=== PATIENT | male | born 1955 | race Caucasian/White ===

== ENCOUNTER 2021-02-24 21:04 | Inpatient (IN) | payer MEDICARE, BC ==
[~2021-02-24] VITALS: Ht 172.7 cm; Wt 61.2 kg
--- NOTE | 2021-02-24 22:31 | NUR ---
COVID SWAB COLLECTED AND SENT TO LAB
[2021-02-24 22:48] LABS: BASOPHILS % (AUTO) 0.6 % (0.0-2.0); EOSINOPHILS % (AUTO) 1.1 % (0.0-6.0); HEMATOCRIT 39 % (39-51); HEMOGLOBIN 13.6 g/dL (13.5-17.5); LYMPHOCYTES # (AUTO) 2.3 K/uL (0.8-4.8); LYMPHOCYTES % (AUTO) 31.5 % (20.0-44.0); MEAN CORPUSCULAR HGB CONC 35 g/dl (31.0-36.0); MEAN CORPUSCULAR VOLUME 89 fL (80-96); MONOCYTES # (AUTO) 0.6 K/uL (0.1-1.30); MONOCYTES % (AUTO) 8.6 % (2.0-12.0); NEUTROPHILS # (AUTO) 4.2 K/uL (1.8-8.9); NEUTROPHILS % (AUTO) 58.2 % (43.0-81.0); PLATELET COUNT (AUTO) 295 K/uL (150-450); RED BLOOD CELL COUNT(AUTO) 4.43 MIL/uL (4.5-6.0); WHITE BLOOD COUNT (AUTO) 7.3 K/uL (4.3-11.0)
--- NOTE | 2021-02-24 23:01 | NUR ---
EVELYN FROM SNF TO ER BED 14. AAOX3. NOT IN RSP DISTRESS. BROUGHT IN FOR MEDICAL CLEARANCE FOR [facility] ADMISSION, PT IS ON HOLD FOR DTS. MD WAS AT THE BEDSIDE FOR EVAL. ORDERS RECEIVED, NOTED AND CARRIED OUT
--- NOTE | 2021-02-25 02:17 | NUR ---
REPORT GIVEN TO YOLANDA ATWOOD FOR [facility]
[2021-02-25 02:22] LABS: BILIRUBIN,URINE NEGATIVE (NEGATIVE); COLOR,URINE YELLOW (YELLOW); LEUKOCYTE ESTERASE ,URINE NEGATIVE (NEGATIVE); NITRITE, URINE NEGATIVE (NEGATIVE); PROTEIN,URINE NEGATIVE (NEGATIVE); UGLUCOSE NEGATIVE (NEGATIVE); UROBILINOGEN,URINE 0.2 EU/dL (0.2)
[2021-02-25 05:19] LABS: ALKALINE PHOSPHATASE 102 U/L (46-116); ASPARTATE AMINOTRANSFERASE 18 U/L (15-37); BILIRUBIN,TOTAL 0.3 mg/dL (0.2-1.0); CARBON DIOXIDE 25 mmol/L (21-32); CHLORIDE 102 mmol/L (98-107); POTASSIUM 3.9 mmol/L (3.5-5.1); SODIUM SERUM 138 mmol/L (136-145); TOTAL PROTEIN, SERUM 6.8 g/dL (6.4-8.2)
[2021-02-25 05:32] LABS: ALANINE AMINOTRANSFERASE 39 U/L (12-78); ALBUMIN 3.7 g/dL (3.4-5.0); BILIRUBIN,DIRECT 0.1 mg/dL (0.0-0.2); CALCIUM, SERUM 8.7 mg/dL (8.5-10.1); CREATININE 1.1 mg/dL (0.6-1.3); GLUCOSE 104 mg/dL (74-106); UREA NITROGEN, BLOOD 21 mg/dL (7-18)
[2021-02-25 05:45] LABS: ACETAMINOPHEN 0 ug/ml (10-30)
--- NOTE | 2021-02-25 05:48 | NUR ---
PENDING TRANSFER TO UNIT/[facility], AWATING LAB RESULTS, LABS SENT OUT.
[2021-02-25 05:52] LABS: ALCOHOL, BLOOD < 3 mg/dL (0-0)
--- NOTE | 2021-02-25 06:12 | NUR ---
TRANSFERRED TO [facility] IN STABLE CONDITION
--- NOTE | 2021-02-25 06:20 | NUR ---
RN NOTE RECEIVED PATIENT NEW ADMIT FROM ER TO ROOM 211-[address] GHOSH.
[2021-02-25] MEDS ORDERED: ACETAMINOPHEN 325 MG TABLET PO PRN (06:30)
[2021-02-25] MEDS ORDERED: MAGNESIUM HYDROXIDE 30 ML UDC PO PRN (06:30)
[2021-02-25] MEDS ORDERED: MAG HYDROX/AL HYDROX/SIMETH 30 ML UDC PO PRN (06:30)
[2021-02-25] MEDS ORDERED: TEMAZEPAM 7.5 MG CAPSULE PO PRN (06:30)
[2021-02-25] MEDS ORDERED: LORAZEPAM 0.5 MG TABLET PO PRN (06:30)
[2021-02-25] MEDS ORDERED: BLOOD SUGAR DIAGNOSTIC 1 EACH STRIP IN ONE (06:30)
[2021-02-25 06:40] VITALS: BP 104/55
--- NOTE | 2021-02-25 06:50 | NUR ---
RN NOTE PATIENT'S SISTER RAMEZ PINA WAS CALLED VIA PHONE BY CHARGE NURSE AND INFORMED RAMEZ ABOUT PATIENT'S ADMISSION AT [facility].
--- NOTE | 2021-02-25 07:15 | NUR ---
RN NOTE DR. GHOSH NOTIFIED ABOUT PATIENT'S ADMISSION AT [facility] UNDER DR. GHOSH'S CARE.
[2021-02-25 07:16] VITALS: BP 105/51
--- NOTE | 2021-02-25 07:34 | NUR ---
RN NOTE PATIENT DENIED TAKING ANY MEDICATIONS AT HOME FOR MED RECONCILIATION. PER PATIENT," I DON'T TAKE ANY MEDICATIONS AT HOME." AND PATIENT REFUSED TO PROVIDE ANY MEDICATION HISTORY.
[2021-02-25 08:00] VITALS: BP 104/55
--- NOTE | 2021-02-25 11:28 | NUR ---
JAQUELIN Initial Discharge Plan: Patient currently lives at [address] [place] [address]; ([phone]). Patient reports that he lives with a friend. Patient would want to go back home upon dc. JAQUELIN will work with the family, pt, and MD for appropriate discharge.
--- NOTE | 2021-02-25 11:42 | NUR ---
Treatment Plan: Pt refused to sign treatment plan and was suspicious of this staff.
--- NOTE | 2021-02-25 13:14 | NUR ---
JAQUELNI Family Contact: SW spoke with patient's sister Zeenat ([phone], ) to gather collateral and to discuss treatment plan. Sister Zeenat stated that pt's mental status has been declining and that months ago he invited a homeless female to live with him. Sister reported that family has an ip attorney and stated APS is also involved in pt's case. Zeenat stated that she does not want pt to return back home and is open to options such as nursing facility and if this option is not available Zeenat expressed that brother Tami will take pt to his place until his house situation is solved. 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 Zeenat expressed that she is currently living in the [facility] and has been trying to help pt.
[2021-02-25] MEDS: risperiDONE-M 0.5 MG TAB.RAPDIS PO SCH ×2 (13:32→17:17)
[2021-02-25 16:00] VITALS: BP 111/56
--- NOTE | 2021-02-25 16:06 | NUR ---
JAQUELIN Family Contact: JAQUELIN spoke with patient's sister Zeenat ([phone]) who stated she is the DPOA but is unable to send the documents at this time. Zeenat requested for this SW to see if she can be the DPOA for pt's finances and to notarize it. JAQUELIN stated pt would have to be agreeable with this.
--- NOTE | 2021-02-25 16:07 | NUR ---
SW Note: SW discussed pt's living situation and how he has a homeless female living at his house. He is aware of this situation. SW expressed that sister Zeenat wants to help pt to become DPOA of finances to evict the homeless person out of his house. Pt stated "I do not want to talk about this" and stated he will refuse to sign any documents.
--- NOTE | 2021-02-25 16:08 | NUR ---
JAQUELIN Family Contact: JAQUELIN spoke with patient's sister Zeenat ([phone]) and stated pt is refusing to sign any documents that has to do with finances and becoming DPOA for finances. Zeenat was understanding, she stated that she is only trying to help her brother and the situation.
[2021-02-25 19:59] VITALS: BP 101/58
[2021-02-25 20:00] VITALS: BP 101/58
--- NOTE | 2021-02-26 06:12 | NUR ---
RN NOTE PATIENT REFUSED AM LABS AT THIS TIME AND PATIENT ASKED THE EDUCATIONAL PARAPROFESSIONAL TO COME BACK LATER.
[2021-02-26 08:00] VITALS: BP 104/59
[2021-02-26] MEDS: risperiDONE-M 0.5 MG TAB.RAPDIS PO SCH ×3 (08:13→16:26)
--- NOTE | 2021-02-26 11:36 | NUR ---
Individual Therapy: SW attempted to meet with patient to conduct therapy. Pt stated "I do not want to talk now". SW unable to conduct therapy at this time.
--- NOTE | 2021-02-26 12:59 | NUR ---
DPOA DOCUMENT: Patient's sister Zeenat ([phone]) sent DPOA documents and SW placed in chart.
[2021-02-26] MEDS ORDERED: risperiDONE-M 0.5 MG TAB.RAPDIS PO PRN (13:00)
[2021-02-26] MEDS: GABAPENTIN 100 MG CAPSULE PO SCH ×2 (13:04→16:26)
--- NOTE | 2021-02-26 13:20 | NUR ---
APS: APS filed through [facility] (Intake ID [id number]) due to pt verbalizing that he has a stranger living in the house and is taking advantage.
[2021-02-26 16:00] VITALS: BP 105/63
[2021-02-26 20:00] VITALS: BP 103/60
[2021-02-27 08:00] VITALS: BP 128/70
[2021-02-27] MEDS: GABAPENTIN 100 MG CAPSULE PO SCH ×3 (08:14→16:17)
[2021-02-27] MEDS: risperiDONE-M 0.5 MG TAB.RAPDIS PO SCH ×3 (08:14→21:14)
[2021-02-27 16:00] VITALS: BP 105/66
--- NOTE | 2021-02-27 19:30 | NUR ---
[facility] RN NOTE, RECEIVED PATIENT AWAKE AND IN BED, NO S/S OR COMPLAINTS OF PAIN AT THIS TIME. PATIENT IS DISPLAYING NO S/S OF APPARENT DISTRESS AT THIS TIME. PATIENT BREATHING IS UNLABORED WITH EQUAL RISE AND FALL OF THE CHEST. PATIENT IS ALERT AND ORIENTED X 3 ON ROOM AIR WITH A SPO2 99%. PATIENT IS COMPLIANT WITH MEDICATIONS, ANXIOUS, POLITE, ISOLATIVE, AND COOPERATIVE. PATIENT DENIES SUICIDAL AND HOMICIDAL IDEATIONS AT THIS TIME. PATIENT ASSISTED WITH TURNING AND REPOSITIONING Q2HR AND PRN FOR COMFORT AND CIRCULATION. PATIENT HAS NO NEEDS AT THIS TIME. PATIENT EDUCATED ON THE USE OF THE CALL SPANN. PATIENT BED SIDE RAILS UP X 2 FOR SAFETY. PATIENT BED IS LOCKED, LOW, WITH BED ALARM ON. WILL CONTINUE TO MONITOR THIS PATIENT Q15 MINUTES WITH THE HELP OF STAFF TO MAINTAIN SAFETY.
[2021-02-27 20:00] VITALS: BP 119/73
[2021-02-28 08:00] VITALS: BP 116/63
[2021-02-28] MEDS: risperiDONE-M 0.5 MG TAB.RAPDIS PO SCH ×3 (08:13→21:12)
[2021-02-28] MEDS: GABAPENTIN 100 MG CAPSULE PO SCH ×3 (08:13→16:12)
[2021-02-28 16:00] VITALS: BP 118/78
[2021-02-28 20:00] VITALS: BP 135/75
[2021-03-01 08:00] VITALS: BP 130/60
[2021-03-01] MEDS: risperiDONE-M 0.5 MG TAB.RAPDIS PO SCH ×3 (08:00→21:30)
[2021-03-01] MEDS: GABAPENTIN 100 MG CAPSULE PO SCH ×3 (09:05→17:27)
[2021-03-01 13:00] VITALS: BP 96/68
[2021-03-01 19:55] VITALS: BP 101/52
--- NOTE | 2021-03-01 20:00 | NUR ---
[facility]-RN NOTES: PATIENT REFUSED WEEKLY SKIN ASSESSMENT.
[2021-03-02 08:00] VITALS: BP 100/59
[2021-03-02] MEDS: risperiDONE-M 0.5 MG TAB.RAPDIS PO SCH ×4 (08:11→21:03)
[2021-03-02] MEDS: GABAPENTIN 100 MG CAPSULE PO SCH ×3 (08:12→17:44)
[2021-03-02 16:00] VITALS: BP 111/64
--- NOTE | 2021-03-02 19:53 | NUR ---
RN NOTES: ANXIETY PATIENT IS ANXIOUS ,RESTLESS,PARANOID, AND AGITATED. PRN ATIVAN 0.5 MG PO GIVEN. WILL CONTINUE TO MONITOR FOR PATIENT'S SAFETY.
[2021-03-02 20:00] VITALS: BP 115/72
[2021-03-02] MEDS: GABAPENTIN 300 MG CAPSULE PO SCH (21:49)
[2021-03-03 08:00] VITALS: BP 125/74
[2021-03-03] MEDS: risperiDONE-M 0.5 MG TAB.RAPDIS PO SCH ×3 (09:42→17:38)
[2021-03-03] MEDS: GABAPENTIN 100 MG CAPSULE PO SCH ×3 (09:43→17:38)
--- NOTE | 2021-03-03 11:06 | NUR ---
JAQUELIN SNF Referral: JAQUELIN sent clinicals to Nadja from [facility] ([phone]) for placement option.
[2021-03-03 16:00] VITALS: BP 118/66
[2021-03-03] MEDS ORDERED: risperiDONE 1 MG TABLET PO SCH (21:00)
[2021-03-03 21:04] VITALS: BP 118/82
[2021-03-03] MEDS: GABAPENTIN 300 MG CAPSULE PO SCH (21:53)
[2021-03-04 08:00] VITALS: BP 102/57
[2021-03-04] MEDS: GABAPENTIN 100 MG CAPSULE PO SCH ×3 (08:12→16:42)
[2021-03-04] MEDS: risperiDONE-M 0.5 MG TAB.RAPDIS PO SCH ×3 (08:13→16:42)
[2021-03-04] MEDS: BENZTROPINE MESYLATE (1 MG) 1 MG TABLET PO SCH ×3 (12:09→22:06)
--- NOTE | 2021-03-04 14:57 | NUR ---
Writ: SW and pt were present contacting the public area attendant office and spoke with [employer] attorney lawyer ([phone]). Pt stated that he wanted to withdraw from his writ.
--- NOTE | 2021-03-04 15:12 | NUR ---
RN-CO: SW,Charge nurse and pt were present contacting the public transit specialist office and spoke with [employer] claim attorney ([phone]). Pt stated that he wanted to withdraw from his writ. Dr Stallworth made aware.
[2021-03-04 16:00] VITALS: BP 135/67
[2021-03-04 20:00] VITALS: BP 112/68
[2021-03-04] MEDS: risperiDONE 1 MG TABLET PO SCH (21:09)
[2021-03-04] MEDS: GABAPENTIN 300 MG CAPSULE PO SCH (22:06)
[2021-03-05 08:00] VITALS: BP 100/59
[2021-03-05] MEDS: risperiDONE-M 0.5 MG TAB.RAPDIS PO SCH ×3 (08:03→17:21)
[2021-03-05] MEDS: BENZTROPINE MESYLATE (1 MG) 1 MG TABLET PO SCH ×4 (08:04→21:35)
[2021-03-05] MEDS: GABAPENTIN 100 MG CAPSULE PO SCH ×3 (08:04→17:21)
--- NOTE | 2021-03-05 09:07 | NUR ---
JAQUELIN SNF Contact: JAQUELIN received a call from Nadja from [facility] ([phone]) who stated they cannot accept pt due to not having skill need.
--- NOTE | 2021-03-05 09:07 | NUR ---
JAQUELIN SNF Referral: JAQUELIN sent clinicals to joceline [facility] ([phone]) for placement option. JAQUELIN sent H & P, progress notes, and medication list.
[2021-03-05 16:00] VITALS: BP 112/54
[2021-03-05 20:00] VITALS: BP 107/62
[2021-03-05] MEDS: risperiDONE 1 MG TABLET PO SCH (21:35)
[2021-03-05] MEDS: GABAPENTIN 300 MG CAPSULE PO SCH (21:35)
[2021-03-06 08:00] VITALS: BP 109/66
[2021-03-06] MEDS: risperiDONE-M 0.5 MG TAB.RAPDIS PO SCH ×3 (08:04→16:39)
[2021-03-06] MEDS: GABAPENTIN 100 MG CAPSULE PO SCH ×3 (08:04→16:39)
[2021-03-06] MEDS: BENZTROPINE MESYLATE (1 MG) 1 MG TABLET PO SCH ×4 (08:04→21:46)
--- NOTE | 2021-03-06 11:00 | NUR ---
JAQUELIN SNF Referral: JAQUELIN sent clinicals to Ciara car from [facility] ([phone]) for placement. JAQUELIN faxed H & P, progress notes, and medication list.
--- NOTE | 2021-03-06 11:46 | NUR ---
SW SNF Contact: JAQUELIN spoke with accounts executive Suzette ([phone]) who stated pt is accepted at [facility].
--- NOTE | 2021-03-06 13:53 | NUR ---
JAQUELIN Family Contact: SW contacted patient's sister Zeenat STEVENSON ([phone]) and indicated that pt is accepted at [facility] and she was agreeable with this.
[2021-03-06 16:00] VITALS: BP 106/59
--- NOTE | 2021-03-06 19:29 | NUR ---
[facility] RN NOTE, RECEIVED PATIENT AWAKE AND IN BED, NO S/S OR COMPLAINTS OF PAIN AT THIS TIME. PATIENT IS DISPLAYING NO S/S OF APPARENT DISTRESS AT THIS TIME. PATIENT BREATHING IS UNLABORED WITH EQUAL RISE AND FALL OF THE CHEST. PATIENT IS ALERT AND ORIENTED X 3 ON ROOM AIR WITH A SPO2 99%. PATIENT IS COMPLIANT WITH MEDICATIONS, ANXIOUS, EASILY IRRITABLE, ISOLATIVE, AND COOPERATIVE. PATIENT DENIES SUICIDAL AND HOMICIDAL IDEATIONS AT THIS TIME. PATIENT ASSISTED WITH TURNING AND REPOSITIONING Q2HR AND PRN FOR COMFORT AND CIRCULATION. PATIENT HAS NO NEEDS AT THIS TIME. PATIENT EDUCATED ON THE USE OF THE CALL SPANN. PATIENT BED SIDE RAILS UP X 2 FOR SAFETY. PATIENT BED IS LOCKED, LOW, WITH BED ALARM ON. WILL CONTINUE TO MONITOR THIS PATIENT Q15 MINUTES WITH THE HELP OF STAFF TO MAINTAIN SAFETY.
[2021-03-06 20:28] VITALS: BP 113/60
[2021-03-06] MEDS: GABAPENTIN 300 MG CAPSULE PO SCH (21:46)
[2021-03-06] MEDS: risperiDONE 1 MG TABLET PO SCH (21:46)
[2021-03-07 08:00] VITALS: BP 102/51
[2021-03-07] MEDS: risperiDONE-M 0.5 MG TAB.RAPDIS PO SCH ×3 (08:06→16:04)
[2021-03-07] MEDS: GABAPENTIN 100 MG CAPSULE PO SCH ×3 (08:06→16:05)
[2021-03-07] MEDS: BENZTROPINE MESYLATE (1 MG) 1 MG TABLET PO SCH ×4 (08:07→21:20)
[2021-03-07 16:00] VITALS: BP 144/84
[2021-03-07 20:13] VITALS: BP 125/73
[2021-03-07] MEDS: GABAPENTIN 300 MG CAPSULE PO SCH (21:20)
[2021-03-07] MEDS: risperiDONE 1 MG TABLET PO SCH (21:20)
[2021-03-08 08:00] VITALS: BP 100/59
[2021-03-08] MEDS: risperiDONE-M 0.5 MG TAB.RAPDIS PO SCH ×3 (08:46→16:38)
[2021-03-08] MEDS: GABAPENTIN 100 MG CAPSULE PO SCH ×3 (08:46→16:38)
[2021-03-08] MEDS: BENZTROPINE MESYLATE (1 MG) 1 MG TABLET PO SCH ×4 (08:46→21:39)
[2021-03-08 16:00] VITALS: BP 125/73
[2021-03-08 20:00] VITALS: BP 105/61
[2021-03-08] MEDS: risperiDONE 1 MG TABLET PO SCH (21:35)
[2021-03-08] MEDS: GABAPENTIN 300 MG CAPSULE PO SCH (21:39)
[2021-03-09 08:00] VITALS: BP 102/59
[2021-03-09] MEDS: GABAPENTIN 100 MG CAPSULE PO SCH ×3 (08:18→17:37)
[2021-03-09] MEDS: risperiDONE-M 0.5 MG TAB.RAPDIS PO SCH ×3 (08:18→17:37)
[2021-03-09] MEDS: BENZTROPINE MESYLATE (1 MG) 1 MG TABLET PO SCH ×4 (08:21→21:36)
[2021-03-09 16:00] VITALS: BP 139/79
[2021-03-09 20:22] VITALS: BP 114/63
[2021-03-09] MEDS: risperiDONE 1 MG TABLET PO SCH (20:39)
[2021-03-09] MEDS: GABAPENTIN 300 MG CAPSULE PO SCH (21:36)
[2021-03-10] MEDS: risperiDONE-M 0.5 MG TAB.RAPDIS PO SCH ×2 (08:00→13:00)
--- NOTE | 2021-03-10 08:06 | NUR ---
SW Discharge Note: Patient will be discharged to senior care facility [facility] [address], [place] [address]; ). Please arrange transportation at 1PM. Senior Computer Specialist spoke with Suzette market stall vendor at [facility]; ([phone]), who stated patient will be accepted today. Patients sister Zeenat STEVENSON ([phone], ) is aware and agreeable with dc. Patient is alert and oriented x3 and is unable to plan for self-care. Patient denies any suicidal or homicidal ideations. Patient is aware and agreeable with discharge plans. Patient will continue to follow-up with (psychiatrist) Dr. Stallworth [address] [facility] [address], [place] [address]; ([phone]) and (it generalist) Dr. Webb [address] [facility] [address], [place] [address]; ([phone]). Patient presents with euthymic and congruent mood.
[2021-03-10] MEDS: BENZTROPINE MESYLATE (1 MG) 1 MG TABLET PO SCH ×2 (09:53→13:00)
[2021-03-10] MEDS: GABAPENTIN 100 MG CAPSULE PO SCH ×2 (09:54→13:00)
[2021-03-10 11:24] VITALS: BP 129/76
--- NOTE | 2021-03-10 16:15 | NUR ---
Patient discharged to [facility] in stable condition.Compliant with medications cooperative with treatment plans Patient denies SI/HI/AVH .Behavior improved ,psychiatric tx plans met ,medical tx plans differed for for continual monitoring .Educated pt about after care plan (Exit -care)and copy provided .Returned personal belongings to patient med list given and explained to patient able to verbalize understanding, report given to staff CAD DEVELOPER in facility .Vs stable ,no c/o pain .Patient seen by and with discharge orders .Patient discharge at 1615 with ambulance.
== END 2021-03-10 16:15 | DRG 885 ==
LOC: ER 21:10 → GPS 02-25 00:03
PROVIDERS: ADMIT Psychiatry & Neurology Psychosomatic Medicine; ATTEND Internal Medicine
DX: F25.0 Schizoaffective disorder, bipolar type (principal); R45.851 Suicidal ideations; F29 Unspecified psychosis not due to a substance or known physiological condition; F41.9 Anxiety disorder, unspecified; F60.81 Narcissistic personality disorder; Z85.820 Personal history of malignant melanoma of skin; Z91.14 Patient's other noncompliance with medication regimen; Z91.19 Patient's noncompliance with other medical treatment and regimen; G31.84 Mild cognitive impairment of uncertain or unknown etiology; F60.0 Paranoid personality disorder; F10.11 Alcohol abuse, in remission; F19.11 Other psychoactive substance abuse, in remission
CPT/HCPCS: 36415; 70450-TC; 80048-TC; 80076-TC; 82962-TC; 85025-TC; 87081-TC; G0480